=== PATIENT | male | born 1965 | race Caucasian/White ===

== ENCOUNTER 2019-08-03 16:46 | Emergency (ER) | payer OTHER ==
[~2019-08-03] VITALS: Ht 185.4 cm; Wt 94.3 kg
[~2019-08-03 16:46] MED LIST: MOTRIN800 MG PO; NORCO1 TA2 PO; SKE400 PO; SOMA350 MG PO; XARELTO STARTER20 MG PO; XARELTO15 M1 PO
[2019-08-03 16:50] VITALS: Ht 185.4 cm; Wt 94.3 kg
[2019-08-03 17:58] VITALS: BP 134/81
== END 2019-08-03 17:58 | disposition home or self-care (01) ==
LOC: ED 16:46
DX: S46.211A Strain of muscle, fascia and tendon of other parts of biceps, right arm, initial encounter (principal); X50.0XXA Overexertion from strenuous movement or load, initial encounter; Y93.89 Activity, other specified; Y92.39 Other specified sports and athletic area as the place of occurrence of the external cause; Y99.8 Other external cause status